=== PATIENT | female | born 1975 | race Caucasian/White ===

== ENCOUNTER → 2020-12-07 13:46 | Outpatient (CLI) | payer OTHER, MEDICAID, SELFPAY ==
--- NOTE | 2020-12-07 | DI.RAD.S_ITS ---
PROCEDURE: FL UPPER GI W AIR INDICATIONS: PRE-OP BARIATRIC COMPARISON: None. 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 No suspicious abdominal calcifications. Visualized solid organ contours appear normal. Bony structures appear unremarkable. Esophagus: Esophageal mucosa is normal on air-contrast views. On single-contrast views, there is normal esophageal peristalsis. No strictures, extrinsic mass effects, or diverticula. No hiatal hernia or elicited gastroesophageal reflux. . Stomach: Suboptimal evaluation secondary to incomplete gaseous distension of the stomach, and rapid emptying of contrast material into the duodenum. No gross mucosal masses or ulcers. Pylorus and duodenal bulb appear normal in morphology. Duodenal folds are normal in thickness as well. IMPRESSION: Overall, unremarkable examination as above Dictated by: Trey Hernández M.D. on 12/07/2020 at 17:03 Approved by: Trey Hernández M.D. on 12/07/2020 at 17:05
== END ==
PROVIDERS: Referring Provider Surgery; Visit Provider Surgery
DX: Z01.818 Encounter for other preprocedural examination (principal); E78.5 Hyperlipidemia, unspecified; E66.9 Obesity, unspecified
CPT/HCPCS: 74246

== ENCOUNTER 2024-11-03 16:17 | Emergency (ER) | payer BC, SELFPAY ==
[2024-11-03 16:21] VITALS: BP 150/79; PULSE 57; RESP 16; TEMP 36.8; O2SAT 99; BMI 20.9
--- NOTE | 2024-11-03 16:24 | DI.RAD.S_ITS ---
PROCEDURE: XR CHEST 1V INDICATIONS: Chest Pain TECHNIQUE: One view of the chest was acquired. COMPARISON: None. FINDINGS: Surgical changes and devices: None. Lungs and pleura: Lungs are clear. No pleural effusions or pneumothorax. Mediastinum: Mediastinal contours appear normal. Heart size is normal. Bones and chest wall: No suspicious bony lesions. Overlying soft tissues appear unremarkable. IMPRESSION: No acute cardiopulmonary abnormality is seen. Dictated by: Sanya Espinoza M.D. on 11/03/2024 at 18:12 Approved by: Sanya Espinoza M.D. on 11/03/2024 at 18:12
--- NOTE | 2024-11-03 16:27 | EKG_ITS ---
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
[2024-11-03] MEDS: ASPIRIN 81 MG CHEW TAB 324 MG PO (17:32)
[2024-11-03 17:47] LABS: Add Manual Diff / Slide Review NO; Hematocrit 33.5 % (36-46); Hemoglobin 11.3 g/dL (12.0-16.0); Lymphocytes Absolute Auto 1300 /uL (1100-4500); Mean Corpuscular HGB Conc 33.8 % (30-36); Mean Corpuscular Hemoglobin 30.8 PG (26-34); Mean Corpuscular Volume 91.2 fL (80-100); Platelet Count 207 X10^3/uL (150-400)
[2024-11-03 18:02] LABS: INR 0.9 (0.9-1.3); Prothrombin Time 10.2 SECONDS (9.4-12.5)
[2024-11-03 18:05] LABS: PTT Partial Thromboplastin Tim 29 SECONDS (25.1-36.5)
[2024-11-03 18:09] LABS: Alanine Aminotransferase 14 IU/L (<35); Albumin 4.2 g/dL (3.5-5.0); Albumin Globulin Ratio 1.4 (1.0-2.8); Alkaline Phosphatase 49 U/L (38-126); Blood Urea Nitrogen 16 mg/dL (7-17); Calcium 8.8 mg/dL (8.4-10.2); Carbon Dioxide 32 mmol/L (22-32); Chloride 101 mmol/L (98-107); Creatine Kinase 130 U/L (30-135); Estimated Glomerular Filt Rate > 60 mL/min (>60); Globulin 2.9 g/dL (1.7-4.1); Glucose 84 mg/dL (70-99); HEMOLYSIS < 15 (0-50); Lipase 61 U/L (23-300); Magnesium 2.0 mg/dL (1.6-2.3); Potassium 4.0 mmol/L (3.4-5.1); Sodium 136 mmol/L (137-145); Total Protein 7.1 g/dL (6.3-8.2)
[2024-11-03 18:21] LABS: NT-proBNP (BNP-Adult 18+) 228 pg/mL (<125); Troponin I < 0.012 ng/mL (0.01-0.034)
[2024-11-03 19:49] VITALS: BP 170/78; PULSE 54; TEMP 37.1; O2SAT 99
[2024-11-03 20:16] LABS: Troponin I < 0.012 ng/mL (0.01-0.034)
== END 2024-11-03 20:09 | disposition left against medical advice (07) ==
PROVIDERS: Emergency Medicine; Emergency Provider Student in an Organized Health Care Education/Training Program
DX: R07.9 Chest pain, unspecified (principal)
CPT/HCPCS: 36415; 71045; 80053; 82550; 83690; 83735; 83880; 84484; 85025; 85610; 85730; 93005; 93010; 99283

== ENCOUNTER → 2024-12-02 09:31 | Outpatient (CLI) | payer BC, SELFPAY ==
[2024-12-02 19:51] LABS: HEMOLYSIS 16 (0-50); Iron 104 ug/dL (37-170)
[2024-12-02 19:55] LABS: Alanine Aminotransferase 11 IU/L (<35); Albumin 3.8 g/dL (3.5-5.0); Albumin Globulin Ratio 1.4 (1.0-2.8); Alkaline Phosphatase 49 U/L (38-126); Blood Urea Nitrogen 18 mg/dL (7-17); Calcium 9.1 mg/dL (8.4-10.2); Carbon Dioxide 30 mmol/L (22-32); Chloride 100 mmol/L (98-107); Cholesterol 150 mg/dL (140-199); Estimated Glomerular Filt Rate > 60 mL/min (>60); Globulin 2.8 g/dL (1.7-4.1); Glucose 92 mg/dL (70-99); HDL Cholesterol 69 mg/dL (40-60); HEMOLYSIS < 15 (0-50); Potassium 4.7 mmol/L (3.4-5.1); Sodium 136 mmol/L (137-145); Total Protein 6.6 g/dL (6.3-8.2); Triglycerides 43 mg/dL (35-150)
[2024-12-02 20:07] LABS: Percent Iron Saturation 36 % (15-50); Total Iron Binding Capacity 286 ug/dL (265-497); Transferrin 220 mg/dL (206-381)
[2024-12-02 20:43] LABS: Vitamin B12 257 pg/mL (239-931)
== END ==
PROVIDERS: PCP Physician Assistant; Visit Provider Family Medicine
DX: I10 Essential (primary) hypertension (principal); R07.9 Chest pain, unspecified; Z82.49 Family history of ischemic heart disease and other diseases of the circulatory system; Z90.3 Acquired absence of stomach [part of]; E78.5 Hyperlipidemia, unspecified
CPT/HCPCS: 80053; 80061; 82607; 83540; 83550